=== PATIENT | male | born 1965 | race Caucasian/White ===

== ENCOUNTER 2020-08-05 12:50 | Outpatient (REF) | payer MEDICAID, SELFPAY | END 2020-08-05 12:51 | disposition home or self-care (01) | LOC: HO.HAP 12:50 | PROVIDERS: PCP Internal Medicine Geriatric Medicine; Referring Provider Internal Medicine Geriatric Medicine; Visit Provider Internal Medicine Geriatric Medicine | DX: Z46.1 Encounter for fitting and adjustment of hearing aid (principal) | CPT/HCPCS: V5266 ==

== ENCOUNTER 2020-11-01 11:37 | Outpatient (REF) | payer MEDICAID, SELFPAY | END 2020-11-01 11:38 | disposition home or self-care (01) | LOC: HO.HAP 11:37 | PROVIDERS: Visit Provider Internal Medicine Geriatric Medicine | DX: Z46.1 Encounter for fitting and adjustment of hearing aid (principal); H90.3 Sensorineural hearing loss, bilateral | CPT/HCPCS: 99499 ==

== ENCOUNTER 2020-11-20 11:03 | Outpatient (REF) | payer MEDICAID, SELFPAY ==
--- NOTE | 2020-11-21 08:30 | MHC.AU.P13 ---
Adult Audiological Evaluation Date of Visit: 11/20/20 Investment Fund Manager Used: Malian- In Person Reason for Appointment: Audiologic re-evaluation due to increased difficulties understanding speech. Marge current hearing aids are not functioning well. The volume controls of both aids do not work and there has been significant corrosion around the contacts. Previous Hearing Test Results: 06/27/2019 [facility] Left Ear - Severe sensorineural hearing loss through all frequencies with 56% speech understanding. Right Ear - Profound sensorineural hearing loss with no speech discrimination ability. Ear History: History of right tympanic membrane perforation as a child. Bothersome Tinnitus/Ringing/Noises in Ears: Both Ears Medical History: Medical History: High Blood Pressure Medication List: Not available for review Hearing Instrument History- Right Ear: Information Coder: Phonak Model: CROS II-13 Serial Number: [id number] Battery Size: Rechargeable Repair Warranty: 2016 Dispensed By: [facility] Date of Fittin06/27/2015 Hearing Instrument History- Left Ear: Information Coder: Phonak Model: Bolero V 50-P Serial Number: [id number] Battery Size: 13 Warranty: 2016 Dispensed By: [facility] Date of Fittin06/27/2015 Otoscopy: Right Ear: Unremarkable Left Ear: Unremarkable Tympanometry: Tympanometry performed due to: History of middle ear dysfunction Right Ear: Reduced Middle Ear Compliance (Type As) Left Ear: Normal Middle Ear System (Type A) Hearing Evaluation: Transducer(s) Used: Insert Earphones Bone Conduction Method: Conventional Audiometry Stimuli Used: Pure Tones Right Ear: Description of Hearing: Profound sensorineural hearing loss Left Ear: Description of Hearing: Severe to profound sensorineural hearing loss Speech Recognition Threshold (SRT): Method Used: Monitored Live Voice Stimuli Used: Spondee Words Right Ear: Could Not Test Left Ear: 85 dB HL Word Discrimination: Method: Monitored Live Voice Word Lists Used: Right Ear: Could Not Test Left Ear: 56% at 100 dB HL Comparison: Compared to the most recent evaluation: Thresholds have decreased in the left ear. Thresholds have improved in the right ear. Speech understanding is stable for the left ear Recommendations: Audiological re-evaluation in one year. Trial with amplification is recommended. Medical clearance from a physician is required before fitting. Hearing Aid Fitting will be scheduled when all materials arrive. See Hearing Aid Evaluation report for more information. When medical clearance is received from Dr. Eldridge, the new CROS hearing aid system and earmolds will be ordered and a Hearing Aid Fitting appointment will be scheduled Diagnosis: Primary Diagnosis: H90.3 Bilateral Sensorineural Hearing Loss Secondary Diagnosis: H93.13 Tinnitus, Bilateral Services Performed: Comprehensive Audiological Evaluation (CPT 35866) Tympanometry (CPT 18938) Signature: Provider: Isadora Polanco, MARCOS-A
--- NOTE | 2020-11-21 09:01 | MHC.AU.HAS ---
Hearing Aid Evaluation Date of Visit: 11/20/20 Publisher Assistant Used: Welsh- In Person Historical Information: Description of Hearing: Asymmetric severe to profound sensorineural hearing loss , right ear greater than left Current personal amplification information, if applicable: Left Phonak Bolero V 50-P and Right CROS II 13 Summary: The volume control for both devices are not working, even after trying to clean. Patient is eligible for new hearing aids, as given the volume controls do not work and there has been significant corrosion around the contacts, advise new rechargeable CROS hearing aid system as the rechargeable model is more water resistant. Hearing Aid Prescription: Based on the individual?s shared listening needs, communication environments, dexterity, desire for connectivity, and personal preferences, the following prescription for amplification has been made: Right ear: Diesel Retrofit Designer: PowWowHR Model: CROS-R Battery Size: Rechargeable Color: Savage Admissions Dean: #2 CROS Wire Type of Dome: Open Left ear: Diesel Retrofit Designer: PowWowHR Model: Eyad 1600-R Battery Size: 13 Color: Savage Admissions Dean: #2 Ultra Power Type of Mold: PowWowHR Ultra Power Skeleton Plan of Care: Patient wishes to purchase hearing aids as prescribed Action Taken/Action Needed: Earmold Impressions Taken Medical Clearance to be requested from PCP/ENT Hearing Fitting to be scheduled when materials arrive Comments: Primary Diagnosis: H90.3 Bilateral Sensorineural Hearing Loss Secondary Diagnosis: H93.13 Tinnitus, Bilateral Signature: Provider: Isadora Polanco, CCC-A
--- NOTE | 2020-11-21 09:03 | MHC.AU.MED ---
Medical Clearance for Hearing Instrumentation Date: 11/21/20 Patient Name: Andre Stephens Date of : 1965 Primary Care Provider: Referring Provider: Mariaa Foreman NP We have seen your patient on 11/21/20 and have determined that they are a candidate for amplification (See accompanying report). Specifically, they would benefit from: Hearing aid use in both ears CROS System There is a statute that addresses Medical Evaluation Requirements prior to fitting a patient with a hearing aid. According to [place] statute 265 CMR:6.03(1), (a) General. Except as provided in 265 CMR 6.03(1)(b), a digital solutions architect shall not sell a hearing aid unless the prospective user has presented to the digital solutions architect a written statement signed by a licensed physician that states that the patient's hearing loss has been medically evaluated and the patient may be considered a candidate for a hearing aid. The medical evaluation must have taken place within the preceding six months. Please note: Due to the [place] Statute referenced above, we cannot accept a signature other than that of a licensed physician. METAL RECLAMATION KETTLE TENDER and PA signatures cannot be accepted. I am in agreement with the above recommendation. There is no medical contraindication for hearing instrumentation. Physician Signature Date Physician Name (Printed)
== END 2020-11-20 11:04 | disposition home or self-care (01) ==
LOC: HO.SH 11:03
PROVIDERS: Visit Provider Registered Nurse Community Health
DX: Z46.1 Encounter for fitting and adjustment of hearing aid (principal); H90.3 Sensorineural hearing loss, bilateral; H93.13 Tinnitus, bilateral
CPT/HCPCS: 92557; 92567; 92591; V5275

== ENCOUNTER 2020-12-30 12:13 | Outpatient (REF) | payer MEDICAID, SELFPAY | END 2020-12-30 12:14 | disposition home or self-care (01) | LOC: HO.HAP 12:13 | PROVIDERS: Visit Provider Internal Medicine Geriatric Medicine | DX: Z46.1 Encounter for fitting and adjustment of hearing aid (principal); H90.3 Sensorineural hearing loss, bilateral | CPT/HCPCS: 92595; V5011; V5020; V5213; V5240; V5264 ==

== ENCOUNTER 2021-01-14 12:26 | Outpatient (REF) | payer MEDICAID, SELFPAY | END 2021-01-14 12:27 | disposition home or self-care (01) | LOC: HO.HAP 12:26 | PROVIDERS: Visit Provider Internal Medicine Geriatric Medicine | DX: Z13.89 Encounter for screening for other disorder (principal) ==

== ENCOUNTER 2021-05-21 07:05 | Outpatient (REF) | payer MEDICAID, SELFPAY ==
--- NOTE | ~2021-05-21 | XR_ITS ---
EXAMINATION: X-RAY STANDING BILATERAL KNEES X-RAY RIGHT KNEE 2 VIEWS CLINICAL INFORMATION: Pain in the right knee. COMPARISON: X-ray of the right knee dated from 06/21/2013. TECHNIQUE: AP standing view of both knees Patella sunrise and lateral view of the right knee FINDINGS: No evidence of acute fractures or malalignment. There is mild joint space narrowing in the medial compartment of the left knee and moderate joint space narrowing in the medial and patellofemoral of the right knee. There are associated subcortical sclerosis and spurring. No erosions or chondrocalcinosis. There are well ossified bodies adjacent to the tibial tuberosity, likely from prior injury. There is a small joint effusion in the right knee. XR/XR knee RT 2V IMPRESSION: No acute fractures or malalignment. Moderate degenerative osteoarthritis in the medial and patellofemoral compartment of right knee. Small joint effusion. Mild degenerative changes in the medial compartment of the left knee.
--- NOTE | ~2021-05-21 | XR_ITS ---
EXAMINATION: X-RAY STANDING BILATERAL KNEES X-RAY RIGHT KNEE 2 VIEWS CLINICAL INFORMATION: Pain in the right knee. COMPARISON: X-ray of the right knee dated from 06/21/2013. TECHNIQUE: AP standing view of both knees Patella sunrise and lateral view of the right knee FINDINGS: No evidence of acute fractures or malalignment. There is mild joint space narrowing in the medial compartment of the left knee and moderate joint space narrowing in the medial and patellofemoral of the right knee. There are associated subcortical sclerosis and spurring. No erosions or chondrocalcinosis. There are well ossified bodies adjacent to the tibial tuberosity, likely from prior injury. There is a small joint effusion in the right knee. XR/XR knee standing BI IMPRESSION: No acute fractures or malalignment. Moderate degenerative osteoarthritis in the medial and patellofemoral compartment of right knee. Small joint effusion. Mild degenerative changes in the medial compartment of the left knee.
== END 2021-05-21 07:06 | disposition home or self-care (01) ==
LOC: HO.HOSX 07:05
PROVIDERS: Visit Provider Physician Assistant
DX: M17.11 Unilateral primary osteoarthritis, right knee (principal); M25.562 Pain in left knee
CPT/HCPCS: 73560; 73565; 99202

== ENCOUNTER 2021-12-31 15:05 | Outpatient (REF) | payer MEDICAID, SELFPAY | END 2021-12-31 15:06 | disposition home or self-care (01) | LOC: HO.HAP 15:05 | PROVIDERS: Visit Provider Emergency Medicine | DX: Z46.1 Encounter for fitting and adjustment of hearing aid (principal); H90.3 Sensorineural hearing loss, bilateral | CPT/HCPCS: V5266 ==

== ENCOUNTER 2023-06-15 13:35 | Outpatient (REF) | payer MEDICAID, SELFPAY ==
--- NOTE | 2023-06-16 13:05 | MHC.AU.HA3 ---
Hearing Instrument Follow-Up- Binaural Date of Visit: 06/15/23 Right Ear: Logan, Model, Color, Serial Number: Jase Castano CROS CIERRA-R SN: [id number] Color: Savage Composition Board Press Operator Repair Warranty: 03/17/2024 Composition Board Press Operator Loss and Damage Warranty: 03/17/2024 [facility] Service Plan: 12/30/2021 Battery Size: Rechargeable Outside Sales Advertising Executive/Slim Tube: #2 CROS Wire Earmold/Dome/CShell/SlimTip:[place] Skeleton Type of Wax Guard: HearClear Dispensed By: [facility] Date of Fittin12/30/2020 Left Ear: Logan, Model, Color, Serial Number: Jase Castano 1600 CIERRA-R SN: [id number] Color: Savage Composition Board Press Operator Repair Warranty: 03/17/2024 Composition Board Press Operator Loss and Damage Warranty: 03/17/2024 [facility] Service Plan: 12/30/2021 Battery Size: 13 Outside Sales Advertising Executive/Slim Tube: #2 Ultra Power Earmold/Dome/CShell/SlimTip: Jase Ultra Power Skeleton Type of Wax Guard: HearClear Dispensed By: [facility] Date of Fittin12/30/2020 Follow-Up Summary: Andre returned for updated hearing test (see separate report). Briefly discussed CI. In the meantime, Andre will continue with hearing aid use. However, he reported that his hearing aids have not been holding a charge. He is unsure if it is related to the hearing aids themselves or the room service attendant. Both hearing aids during appointment. Tried to charge during testing - Able to briefly connect to [employer] software. Firmware update available; however, hearing aids did not have enough battery life to complete update. Andre and his son decided to leave his hearing aids and room service attendant, cord, and wall plug here to charge overnight and be reassessed tomorrow. 06/16/2023: Even after charging overnight, LED light on room service attendant is still blinking. Hearing aids were connected to [employer] and only at 60% battery power. Able to update firmware. Will send hearing aids, room service attendant, cord, and wall plug to [facility] for in-warranty repair. Recommendations: Patient will be contacted when materials have arrived. Diagnosis Code(s): Primary Diagnosis: H90.3 Bilateral Sensorineural Hearing Loss Signature: Provider: Graham Hua, [facility]
== END 2023-06-15 13:36 | disposition home or self-care (01) ==
LOC: HO.SH 13:35
PROVIDERS: Visit Provider Registered Nurse
DX: H91.91 Unspecified hearing loss, right ear (principal)
CPT/HCPCS: 92557; 92593; 99499

== ENCOUNTER 2023-07-01 13:47 | Outpatient (REF) | payer MEDICAID, SELFPAY | END 2023-07-01 13:48 | disposition home or self-care (01) | LOC: HO.HAP 13:47 | PROVIDERS: Visit Provider Registered Nurse Community Health | DX: Z13.89 Encounter for screening for other disorder (principal) ==

== ENCOUNTER 2023-07-01 14:02 | Outpatient (REF) | payer SELFPAY | END 2023-07-01 14:03 | disposition home or self-care (01) | LOC: HO.HAP 14:02 | PROVIDERS: Visit Provider Registered Nurse Community Health | DX: Z46.1 Encounter for fitting and adjustment of hearing aid (principal); H90.3 Sensorineural hearing loss, bilateral | CPT/HCPCS: V5267 ==

== ENCOUNTER 2023-10-11 10:31 | Outpatient (REF) | payer MEDICAID, SELFPAY ==
[2023-10-11 12:45] LABS: Uric Acid Urine Random 37.2 mg/dL
== END 2023-10-11 10:32 | disposition home or self-care (01) ==
LOC: HO.HHCL 10:31
PROVIDERS: Visit Provider Registered Nurse
DX: M10.9 Gout, unspecified (principal)
CPT/HCPCS: 84560

== ENCOUNTER 2024-06-01 17:21 | Outpatient (REF) | payer MEDICAID, SELFPAY | END 2024-06-01 17:22 | disposition home or self-care (01) | LOC: HO.HHCLNP 17:21 | PROVIDERS: Visit Provider Family Medicine | DX: R30.0 Dysuria (principal) | CPT/HCPCS: 87086 ==

== ENCOUNTER 2024-07-03 14:05 | Outpatient (REF) | payer MEDICAID, SELFPAY ==
[2024-07-03 16:10] LABS: MANUAL DIFF FLAG NO
[2024-07-03 16:12] LABS: Appearance Urine Clear; Color Urine Yellow; Glucose Urine UA >=1000 mg/dL (Negative); Leukocyte Esterase Urine Negative (Negative); Nitrite Urine Negative (Negative); PH 5.5 (5.0-9.0); Specific Gravity - Urine >= 1.030 (1.005-1.025); UMIC TRIGGER UACC YES; Urine Blood Trace (Negative); Urine Ketones Negative (Negative); Urine Protein Trace mg/dL (Neg-Trace)
[2024-07-03 16:17] LABS: Bacteria Urine None Seen (None Seen); Basophils Absolute Auto 0.1 X10*3/uL (0.0-0.2); Basophils Percent Auto 0.8 % (0-2); Eosinophils Absolute Auto 0.2 X10*3/uL (0.0-0.4); Eosinophils Percent Auto 1.9 % (0-4); Hematocrit 45.6 % (42.0-52.0); Hemoglobin 15.2 g/dl (14.0-18.0); Hyaline Casts Urine 0-2 /LPF (0-2); Imm Gran Abs Auto 0.02 X10*3/uL (0.00-0.03); Imm Gran Pct Auto 0.3 % (0.0-0.4); Lymphocytes Absolute Auto 3.2 X10*3/uL (1.2-4.9); Lymphocytes Percent Auto 40.4 % (20-40); Mean Corpuscular HGB Conc 33.3 g/dl (31.0-36.0); Mean Corpuscular Hemoglobin 33.6 pg (27.0-33.0); Mean Corpuscular Volume 100.9 fL (80.0-98.0); Mean Platelet Volume 12.4 fL (9.4-12.4); Monocytes Percent Auto 12.2 % (2-11); Neutrophils Absolute Auto 3.5 x10*3/uL (2.0-8.3); Neutrophils Percent Auto 44.4 % (45-73); Platelet Count 206 X10*3/uL (160-400); RBC Urine 0-2 /HPF (0-2); Red Blood Count 4.52 X10*6/uL (4.60-5.80); Red Cell Distribution Width 13.2 % (11.0-16.0); Squamous Epithelial Cell Urine 0-2 /HPF (0-2); WBC Urine 0-5 /HPF (0-5); White Blood Count 7.9 X10*3/uL (4.8-10.8)
== END 2024-07-03 14:06 | disposition home or self-care (01) ==
LOC: HO.HHCL 14:05
PROVIDERS: Family Medicine; Visit Provider Internal Medicine Geriatric Medicine
DX: D75.1 Secondary polycythemia (principal); R31.29 Other microscopic hematuria
CPT/HCPCS: 36415; 81001; 85025

== ENCOUNTER 2024-12-29 11:00 | Outpatient (REF) | payer SELFPAY ==
--- OUTSIDE RECORDS SUMMARY | 2025-01-01 12:33 | XMS_ITS | Encounter Summary ---
Author Organization [employer] Address [address] 7t [place] [address] Care Team Providers Care Commissioner Conservation Of Resources Name Role Phone Bing Gamboa SALES ATTENDANT BUILDING MATERIALS Primary Care Provider [phone] Kristen Lazaro NP Primary Care Provider [phone] Name, Guru DIAS Primary Care Provider [phone] Encounter Details Date Type Department Care Team (Late st Contact Info) Description 07/12/2023 Abstract [facility] MEDICINE 230 [place] [address] Jenni Holman Social History Tobacco Use Types [...] documented as of this encounter Care Teams Commissioner Conservation Of Resources Relationship Specialty Start Date End Date Bing Gamboa FNP 230 [place] [address] PCP - General Family Medicine 05/20/23 09/23/23 Kristen Lazaro NP 230 [place] [address] PCP - General Family Medicine 09/24/23 02/28/24 Guru Eldridge MD 230 [place] [address] PCP - General Internal Medicine 02/29/24 documented as of this encounter
--- OUTSIDE RECORDS SUMMARY | 2025-01-01 12:33 | XMS_ITS | Encounter Summary ---
Author Organization [employer] [facility] Address [address] 7t [place] [address] Care Team Providers Care Charter Coach Driver Name Role Phone Tray Brady Primary Care Provider Unavail Bing Erickson Primary Care Provider [phone] Kristen Lazaro NP Primary Care Provider [phone] Name, Guru DIAS Primary Care Provider [phone] Reason for Visit * Reason Comments Med Refill Encounter Details Date Type Department Care Team (Late st Contact Info) Description 10/27/2022 Refill [facility] MEDICINE 230 [place], [place] [phone] Dorota Carey MD [address] [place] [address] Type 2 diabetes mellitus with other specified complication, unspecified whether buttermaker insulin use (CMS/HCC) (Primary Dx) Social History [...] mellitus with other specified complication, unspecified whether senior living insulin use (CMS/HCC)- Primary documented in this encounter Care Teams Charter Coach Driver Relationship Specialty Start Date End Date Tray Brady AGNP PCP - General Family Medicine 10/08/22 05/19/23 Bing Gamboa FNP [address] [place] [address] PCP - General Family Medicine 05/20/23 09/23/23 Kristen Lazaro NP [address] [place] [address] PCP - General Family Medicine 09/24/23 02/28/24 Guru Eldridge MD [address] [place] [address] PCP - General Internal Medicine 02/29/24 documented as of this encounter
--- OUTSIDE RECORDS SUMMARY | 2025-01-01 12:33 | XMS_ITS | Encounter Summary ---
Author Organization [employer] Address [address] 7[address] [place] [address] Care Team Providers Care Recreation Director Name Role Phone Bing GamboaP Primary Care Provider [phone] Kristen Lazaro NP Primary Care Provider [phone] Chente, Guru DIAS Primary Care Provider [phone] Reason for Visit * Reason Comments Med Refill Encounter Details Date Type Department Care Team (Late st Contact Info) Description 08/12/2023 Refill [facility] MEDICINE 230 [place] [address] Tray Brady AGNP Social History Tobacco Use [...] documented as of this encounter Care Teams Recreation Director Relationship Specialty Start Date End Date Bing Gamboa FNP 230 [place] [address] PCP - General Family Medicine 05/20/23 09/23/23 Kristen Lazaro NP [address] [place] [address] PCP - General Family Medicine 09/24/23 02/28/24 Guru Eldridge MD 230 [place] [address] PCP - General Internal Medicine 02/29/24 documented as of this encounter
--- OUTSIDE RECORDS SUMMARY | 2025-01-01 12:33 | XMS_ITS | Encounter Summary ---
Author Organization [employer] Address [address] 7t [place] [address] Care Team Providers Care Cot Assembler Name Role Phone Name, Guru DIAS Primary Care Provider [phone] Reason for Visit * Reason Comments Med Refill Encounter Details Date Type Department Care Team ([facility] st Contact Info) Description 09/27/2024 Refill [facility] MED & PEDS [address] [place], [place] [phone] Name, MD Guru [address] [place] [address] Social History Tobacco Use Types Packs/Day Years [...] documented as of this encounter Care Teams Cot Assembler Relationship Specialty Start Date End Date Name, MD Guru [address] [place] [address] PCP - General Internal Medicine 02/29/24 documented as of this encounter
--- OUTSIDE RECORDS SUMMARY | 2025-01-01 12:33 | XMS_ITS | Clinical Summary ---
Author Organization [employer] [facility] Address [address] [facility] [address] 7t [place] [address] Care Team Providers Care Configuration Analyst Name Role Phone Name, Guru DIAS Primary Care Provider [phone] Allergies Active Allergy Reactions Criticality Noted Date [...] mellitus with other specified complication, unspecified whether long term care phlebotomist insulin use (CMS/HCC) USE DIRECTED 100 each 5 01/28/20 24 Active Farxiga 5 MG Take [...] new referral. Dental home: Has dentist in [place] Type 2 diabetes mellitus 08/10/2022 Assessment & [...] Type Department Care Team Description 12/14/2024 Telephone [facility] MEDICINE [address] [place] [address] Aj Grewal [place] february recalls 12/14/2024 Refill [facility] [address] [place], [place] [phone] Name, MD Guru Type 2 diabetes mellitus with stage 2 chronic kidney disease, without long-term current use of insulin ([facility]/HCC) ([facility]); Atrial fibrillation, unspecified type ([facility]/HCC) 12/12/2024 Refill [facility] MEDICINE [address] [place], [place] [phone] Tania Jorgensen MD Atrial fibrillation, unspecified type (CMS/HCC) 12/12/2024 Refill [facility] MED & PEDS [address] [place], [place] [phone] Guru Eldridge MD Atrial fibrillation, unspecified type (CMS/HCC); Type 2 diabetes mellitus with stage 2 chronic kidney disease, without long-term current use of insulin (CMS/[facility]) (CMS/HCC) 11/10/2024 Population Health Risk Score [facility] () Department [address] [place] [id number] Provider, Population Health Generic 11/06/2024 Refill [facility] MED & PEDS [address] [place] [address] Name, MD Guru from Last 3 Months [...] Media Lot # [id number] Lot# Expiration Date ,104 Blood 03/03/2024 10:2 0 AM EDT us Guru Eldridge MD POINT OF CARE TEST ENTER/EDIT OR DERABLES Final Result * Hepatitis C Antibody with Reflex to HCV, RNA, Quantitative, Real-Time PCR (01/13/2023 10:41 AM EDT) Hepatitis C Antibody NON-REACT BON NON-REACT BON [facility] Index 0.06 <1.00 [facility] Comment: HCV antibody was non-reactive. There is no laboratory evidence of HCV infection. In most cases, no further action is required. However, if recent HCV exposure is suspected, a test for HCV RNA (test code 20975) is suggested. For additional information please refer to http://education.Advanced Electron Beams/faq/OLA71z4 (This link is being provided for informational/ educational purposes only.) Blood Venous blood specimen / Unknown 01/13/2023 10:41 AM EDT 01/13/2023 10:42 AM EDT Narrative [facility] - 01/13/2023 8:45 PM EDT FASTING:UNKNOWN FASTING: UNKNOWN Tray Brady [facility] LAB BLOOD ORDERABLES Final Res ult [facility] [address], [place] [address] [employer] [place] [employer] [address] [place] [address] * (ABNORMAL) Lipid Panel, Standard (01/13/2023 10:41 AM EDT) [facility] Cholesterol, Total 184 <200 mg/dL [employer] [place] [facility] HDL Cholesterol 52 > OR = 40 mg/dL [employer] [place] [facility] Triglycerides 172(H) <150 mg/dL [employer] [place] [facility] LDL Cholesterol 103(H) mg/dL (calc) [employer] [place] [facility] Comment: Reference range: <100 Desirable range <100 mg/dL for primary prevention; ?? <70 mg/dL for patients with CHD or diabetic patients with > or = 2 CHD risk factors. LDL-C is now calculated using the Tashi-Iesha calculation, which is a validated novel method providing better accuracy than the Friedewald equation in the estimation of LDL-C. Tashi HALEY et al. DEBBY. 2013;310(19): 9914-7863 (http://education.ULURU.Ambassador/faq/TIO433) Chol/HDLC Ratio 3.5 <5.0 (calc) [employer] [place] [facility] Non-HDL Cholesterol 132(H) <130 mg/dL (calc) [employer] [place] [facility] Comment: For patients with diabetes plus 1 major ASCVD risk factor, treating to a non-HDL-C goal of <100 mg/dL (LDL-C of <70 mg/dL) is considered a therapeutic option. Blood Venous blood specimen / Unknown 01/13/2023 10:41 AM EDT 01/13/2023 10:42 AM EDT Narrative [facility] - 01/13/2023 8:45 PM EDT FASTING:UNKNOWN FASTING: UNKNOWN Tray Brady AGNP LAB BLOOD ORDERABLES Final Res ult [facility] [address] [facility], [place] [address] [facility] [address] [place] [address] * (ABNORMAL) HIV 1/2 ANTIGEN/ANTIBODY,FOURTH GENERATION W/RFL (06/19/2022 11:21 AM EDT) Pathologist [facility] HIV-1/2 ANTIGEN AND ANTIBODIES, 4TH GENERATION [...] 06/19/2022 11:2 1 AM EDT Mariaa Foreman DIRECTOR DIGITAL LAB BLOOD ORDERABLES Final Res ult [facility] * (ABNORMAL) Colonoscopy (06/28/2017) Colonoscopy Abnormal( A) Normal Comment:2 small polyps, Mode rate Diverticulosis. Repeat 5 years 06/28/2017 Historical Provider HEALTH MAINTENANCE Final Result from Last 3 Months or Most Recently Relevant to Health Maintenance Insurance [employer] Care Teams Configuration Analyst Relationship Specialty Start Date End Date Name, MD Guru 230 [place] [address] PCP - General Internal Medicine 02/29/24
--- OUTSIDE RECORDS SUMMARY | 2025-01-01 12:33 | XMS_ITS | Encounter Summary ---
Author Organization [employer] Address [address] 7t [place] [address] Care Team Providers Care Hand Iii Cutter Name Role Phone Tray Brady Primary Care Provider Unavail Bing EricksonP Primary Care Provider [phone] Kristen Lazaro NP Primary Care Provider [phone] Name, Guru DIAS Primary Care Provider [phone] Reason for Visit * Reason Onset Date Comments Referral 01/18/2023 Encounter Details Date Type Department Care Team (Late st Contact Info) Description 01/18/2023 Telephone [facility] MEDICINE [address] [place], [place] [phone] Tray Brady AGNP Referral Social History Tobacco [...] [facility]. Please contact pt at [phone] documented in this encounter Plan of Treatment Not on file documented as of this encounter Visit Diagnoses Not on filedocumented in this encounter Additional Health Concerns Assessment Noted Time PHQ-9 Depression Total Score: 5 01/02/20 9:27 AM EDT documented as of this encounter Care Teams Hand Iii Cutter Relationship Specialty Start Date End Date Tray Brady AGNP PCP - General Family Medicine 10/08/22 05/19/23 Bing Gamboa FNP 230 [place] [address] PCP - General Family Medicine 05/20/23 09/23/23 Kristen Lazaro NP [address] [place] [address] PCP - General Family Medicine 09/24/23 02/28/24 Guru Eldridge MD [address] [place] [address] PCP - General Internal Medicine 02/29/24 documented as of this encounter"
--- OUTSIDE RECORDS SUMMARY | 2025-01-01 12:33 | XMS_ITS | Encounter Summary ---
Author Organization [employer] Address [address] 7[address] [place] [address] Care Team Providers Care Water Aerobics Instructor Name Role Phone Name, Guru DIAS Primary Care Provider [phone] Reason for Visit * Reason Comments Med Refill Encounter Details Date Type Department Care Team ([facility] st Contact Info) Description 12/14/2024 Refill [facility] [address] [place] [address] Name, MD Guru [address] [place], [place] [phone] Type 2 diabetes mellitus with stage 2 chronic kidney disease, without long-term current use of insulin (CMS/HCC) ([facility]/HCC); Atrial fibrillation, unspecified type (CMS/HCC) Social History [...] documented as of this encounter Care Teams Water Aerobics Instructor Relationship Specialty Start Date End Date Name, MD Guru [address] [place] [address] PCP - General Internal Medicine 02/29/24 documented as of this encounter
--- OUTSIDE RECORDS SUMMARY | 2025-01-01 12:33 | XMS_ITS | Clinical Summary ---
Author Organization [facility] Address [address] [facility] [place] [address] Phone Care Team Providers Care Preschool Associate Teacher Name Role Phone Mariaa Foreman Primary Care [...] new referral. Dental home: Has dentist in [place] Type 2 diabetes mellitus 08/10/2022 Overview (01/18/2023): [...] Office Visit [facility] [address] [facility] [address] [place] [address] Yesica Menezes ARNP [address] [place] [address] Health Maintenance Due Date Last [...] PM EDT) Hemoglobin A1C 6.2(H) (4.0-5.6) % [facility] Comment: MONITORING: In known diabetic patients, hemoglobin A1c targets should be discussed with health care provider. DIAGNOSTIC USE: ??The [place] Diabetes Association (ADA) and the World Health [...] Supplement 1 Testing performed or reported by [employer], a Service of [facility], [address] [place] [address] Jasper Vines MD, Volunteer Specialist [facility]# [id number] 05/24/2023 4:15 PM EDT 05/24/2023 4:25 PM EDT us Jennifer Luu MD LAB BLOOD ORDERABLES Final Resu lt [facility] from Last 3 Months or Most Recently Relevant to Health Maintenance [place] [address] Medicaid [place] Care Teams Preschool Associate Teacher Relationship Specialty Start Date End Date Mariaa Foreman [address] [place] [address] PCP - General Family Medicine 02/25/21
--- OUTSIDE RECORDS SUMMARY | 2025-01-01 12:33 | XMS_ITS | Encounter Summary ---
Author Organization [employer] Address [address] 7[address] [place] [address] Care Team Providers Care Director Learning Services Name Role Phone Name, Guru DIAS Primary Care Provider [phone] Reason for Visit * Reason Comments Med Refill Encounter Details Date Type Department Care Team ([facility] st Contact Info) Description 12/12/2024 Refill [facility] [address] [place], [place] [phone] Name, MD Guru [address] [place] [address] Atrial fibrillation, unspecified type ([facility]); Type 2 diabetes mellitus with stage 2 chronic kidney disease, without long-term current use of insulin ([facility]) ([facility]) Social History Tobacco Use Types Packs/Day Years [...] Visit Diagnoses Diagnosis Atrial fibrillation, unspecified type ([facility]) Type 2 diabetes mellitus with stage 2 chronic kidney disease, without long-term current use of insulin ([facility]) ([facility]) documented in this encounter Additional Health Concerns Assessment Noted Time PHQ-9 Depression Total Score: 5 01/02/20 23 9:27 AM EDT documented as of this encounter Care Teams Director Learning Services Relationship Specialty Start Date End Date Name, MD Guru [address] [place] [address] PCP - General Internal Medicine 02/29/24 documented as of this encounter
== END 2024-12-29 11:01 | disposition home or self-care (01) ==
LOC: HO.HAP 11:00
PROVIDERS: Visit Provider Registered Nurse Community Health
DX: Z46.1 Encounter for fitting and adjustment of hearing aid (principal)
CPT/HCPCS: V5267

== ENCOUNTER 2024-12-29 13:08 | Outpatient (REF) | payer MEDICAID, SELFPAY ==
--- OUTSIDE RECORDS SUMMARY | 2024-12-29 13:29 | XMS_ITS | Encounter Summary ---
Author Organization [facility] Address [address] [place] [address] Care Team Providers Care Flaker Tender Name Role Phone Tray Brady Primary Care Provider Unavail Bing EricksonP Primary Care Provider [phone] Kristen Lazaro NP Primary Care Provider [phone] Name, Guru DIAS Primary Care Provider [phone] Reason for Visit * Reason Onset Date Comments Referral 01/18/2023 Encounter Details Date Type Department Care Team (Late st Contact Info) Description 01/18/2023 Telephone [facility] [address] [place], [place] [phone] Tray Brady AGNP Referral Social History Tobacco Use Types Packs/Day Years Used Date Smoking Tobacco: Former Cigarettes Passive Smoke Exposure: Never Smokeless Tobacco: Never Alcohol Use Standard Drinks/Week Comments Not Currently 0 (1 standard drink = 0.6 oz pur e alcohol) Depression Answer Date Recorded Patient Health Questionnaire-9 Score 5 01/01/2023 Depression Answer Date Recorded Patient Health Questionnaire-2 Score 1 01/01/2023 Sex and Gender Information Value Date Recorded Sex Assigned at Male 06/29/2022 10:17 AM EDT Legal Sex Male 10:16 AM EDT Gender Identity Choose not to disclose 10:17 AM EDT Sexual Orientation Choose not to disclose 2021 10:17 AM EDT COVID-19 Exposure Response Date Recorded In the last 10 days, have yo u been in contact with someone who was confirmed or suspected to have Coronavirus/COVID-19? No / Unsure 01/15/2023 9:24 AM EDT documented as of this encounter Miscellaneous Notes * Telephone Encounter - Isabel Biggs RN - 01/18/2023 4:12 PM EDT TC X1 to pt regarding message below. Unsure if pt requesting eye care referral for routine visit orfor urgent concern or if pt is aware of long wait times. LVM to return call to nurses. * Telephone Encounter - Grayson Johnson - 01/18/2023 3:12 PM EDT Tc from pt requesting a [facility]. Please contact pt at [phone] documented in this encounter Plan of Treatment Not on file documented as of this encounter Visit Diagnoses Not on filedocumented in this encounter Additional Health Concerns Assessment Noted Time PHQ-9 Depression Total Score: 5 01/02/20 9:27 AM EDT documented as of this encounter Care Teams Flaker Tender Relationship Specialty Start Date End Date Tray Brady AGNP PCP - General Family Medicine 10/08/22 05/19/23 Bing Gamboa FNP [address] [place] [address] PCP - General Family Medicine 05/20/23 09/23/23 Kristen Lazaro NP [address] [place] [id number] PCP - General Family Medicine 09/24/23 02/28/24 Guru Eldridge MD [address] [place] [id number] PCP - General Internal Medicine 02/29/24 documented as of this encounter
--- OUTSIDE RECORDS SUMMARY | 2024-12-29 13:29 | XMS_ITS | Encounter Summary ---
Author Organization [employer] Address [address] [place] [address] Care Team Providers Care Fluorescent Lighting Model Maker Name Role Phone Name, Guru DIAS Primary Care Provider [phone] Reason for Visit * Reason Comments Med Refill Encounter Details Date Type Department Care Team ([facility] st Contact Info) Description 09/27/2024 Refill [facility] [address] [place], [place] [phone] Name, MD Guru [address] [place] [address] Social History Tobacco Use Types Packs/Day Years Used Date Smoking Tobacco: Some Days Cigarettes Passive Smoke Exposure: Never Smokeless Tobacco: Never Alcohol Use Standard Drinks/Week Comments Not Currently 0 (1 standard drink = 0.6 oz pur e alcohol) Depression Answer Date Recorded Patient Health Questionnaire-9 Score 5 01/01/2023 Housing Stability Answer Date Recorded What is your housing situation today? I have don do 03/03/[address] you li ve. Do you have problems with any of the following? None of the above 03/03/2024 Food Insecurity Answer Date Recorded Within the past 12 months, y ou worried that your food would run out before you got money to buy more: Never True 03/03/2024 Within the past 12 months,th e food you bought just didn't last and you didn't have enough money to get more: Never True 12/2023 Transportation Answer Date Recorded In the past 12 months, has l ack of transportation kept you from medical appts, meetings, work or from getting things needed for daily living? No 03/03/2024 Utilities Answer Date Recorded In the past 12 months, has t he electric, gas, oil or water company threatened to shut off services in your home? No 03/03/2024 Depression Answer Date Recorded Patient Health Questionnaire-2 Score 1 01/01/2023 Internet Access Answer Date Recorded Internet Access Q1 Yes 05/01/2024 Internet Access Q2 I do not want or need it 09/2023 Sex and Gender Information Value Date Recorded Sex Assigned at Male 06/29/2022 10:17 AM EDT Legal Sex Male 10:16 AM EDT Gender Identity Choose not to disclose 10:17 AM EDT Sexual Orientation Choose not to disclose 2021 10:17 AM EDT documented as of this encounter Plan of Treatment Not on file documented as of this encounter Visit Diagnoses Not on filedocumented in this encounter Additional Health Concerns Assessment Noted Time PHQ-9 Depression Total Score: 5 01/02/20 23 9:27 AM EDT documented as of this encounter Care Teams Fluorescent Lighting Model Maker Relationship Specialty Start Date End Date Name, MD Guru [address] [place] [address] PCP - General Internal Medicine 02/29/24 documented as of this encounter
--- OUTSIDE RECORDS SUMMARY | 2024-12-29 13:29 | XMS_ITS | Clinical Summary ---
Author Organization [facility] Address [address] [place] [address] Care Team Providers Care Director Of Enterprise Applications Name Role Phone Name, Guru DIAS Primary Care Provider [phone] Allergies Active Allergy Reactions Criticality Noted Date Comments Aspirin 09/28/2014 Lisinopril Swelling 01/15/2023 Tongue swelling. Penicillin V Other reaction(s): unspecified Penicillins 09/28/2014 Medications Blood Pressure kit Use on arm to check blood pressure 2-3 times a week Active Blood Glucose Monitoring Suppl (FreeStyle Lite) w/Device kit Test 1 times by intradermal route 2 times every day Active Elastic Bandages & Supports (T.E.D. Anti-Embolism Stockings) misc Wear during the day, remove at night, size large Active Alcohol Swabs (Alcohol Prep) 70 % padsIndications :Type 2 diabetes mellitus with other specified complication, unspecified whether oysterman insulin use (CMS/HCC) USE DIRECTED 100 each 01/28/20 24 Active Farxiga 5 MG Take 1 tablet (5 mg) by mouth in the morning. 30 tablet 03/03/20 24 Active simvastatin (Zocor) 40 MG tablet Take 1 tablet (40 mg) by mouth at bedtime. 90 tablet 3 03/03/20 24 Active glucose blood (FREESTYLE LITE) test strip TEST BLOOD SUGAR TWICE DAILY 100 each 05/12/20 24 Active Eliquis 5 MG tabletIndicatio ns:Atrial fibrillation, unspecified type (CMS/HCC) TAKE 1 TABLET BY MOUTH TWICE DAILY IN THE MORNING AND AT BEDTIME 60 tablet 08/15/20 24 Active TRUEplus Lancets 33G miscIndications :Type 2 diabetes mellitus with stage 2 chronic kidney disease, without long-term current use of insulin (CMS/HCC) (CMS/HCC) USE DIRECTED TO TEST BLOOD SUGAR TWICE DAILY 100 each 11 08/16/20 24 Active metFORMIN (Glucophage) 500 MG tablet TAKE 1 TABLET BY MOUTH TWICE DAILY IN THE MORNING AND IN THE EVENING 180 tablet 1 11/08/19 25 Active metoprolol tartrate (Lopressor) 50 MG tabletIndicatio ns:Atrial fibrillation, unspecified type (CMS/HCC) TAKE 1 TABLET BY MOUTH TWICE DAILY IN THE MORNING AND AT BEDTIME 180 tablet 12/14/19 25 Active metoprolol tartrate (Lopressor) 50 MG tabletIndicatio ns:Atrial fibrillation, unspecified type (CMS/HCC) TAKE 1 TABLET BY MOUTH TWICE DAILY IN THE MORNING AND AT BEDTIME 180 tablet 09/04/19 25 025 Discontinued Active Problems Problem Noted Date Diagnosed Date Atrial fibrillation 04/22/2023 Overview (04/22/2023): On Eliquis and metoprolol, followed by cards last OV 04/14/23; echo 06/2022 with EF 60-65% Gout 01/01/2023 Assessment & Plan (01/01/2023 6:18 PM EDT): Patient has a history of gout. Reports he has not had a flare in a long time I could not get a time frame. Routine adult health maintenance 01/01/2023 Assessment & Plan (02/19/2023 10:26 AM EDT): He missed last colonoscopy due to knee pain. He requested that they contact his with new referral. Patient , Francy, phone number placed in referral. Assessment & Plan (01/01/2023 6:15 PM EDT): Patient is a poor hisorian Medications: Confirmed medications with pharmacy; removed htz and lisinopril. Allergies: reviewed. PHQ: 5 Smoking status: no smoke, drug, etoh, Lipids: Colonoscopy: had appointment but didn't go due to arthritis of knee. Eye exam: here a few years ago, would like new referral. Dental home: Has dentist in [place] Type 2 diabetes mellitus 08/10/2022 Assessment & Plan (02/19/2023 10:12 AM EDT): Glucose today 131. Type 2 diabetes mellitus (CMS/HCC) - Primary ? A1C Component Ref Range & Units 2 wk ago (01/01/23) 2 wk ago (01/01/23) 2 yr ago (02/09/20) Hemoglobin A1C 4.0 - 6.0 % 6.8??Abnormal? 6.5??High?? R, CM ?? Most recent A1C below 7. I do not want to alter his medications today. F/up 3 months for DM2 Assessment & Plan (01/15/2023 12:39 PM EDT): A1C Component Ref Range & Units 2 wk ago (01/01/23) 2 wk ago (01/01/23) 2 yr ago (02/09/20) Hemoglobin A1C 4.0 - 6.0 % 6.8??Abnormal?? 6.5??High?? R, CM Glucose 225 Patients A1C below 7. I am not going to alter medications today. F/up 2 months and check A1C glucose then. Discussed diet and exercise DASH diet plan handout given. Assessment & Plan (01/01/2023 6:17 PM EDT): A1C 6.8, no alterations to medications advised at this time. Proteinuria 04/13/2022 Hypertensive renal disease 05/12/2021 Stage 2 chronic kidney disease 05/12/2021 Venous insufficiency of leg 03/28/2020 Hearing loss in right ear 01/02/2013 Assessment & Plan (01/01/2023 6:20 PM EDT): Patient states that he used to be followed by audiology. He requests a referral so he can get hearing aids. Obesity 01/02/2013 Diverticular disease of colon 03/24/2007 Assessment & Plan (01/01/2023 10:14 AM EDT): Patient states he had a GI appointment but didn't go due to his arthritis. I could not find records of his last colonoscopy. Hypertension 08/30/1957 Assessment & Plan (02/19/2023 10:25 AM EDT): BP well managed no medication changes today. Counseled low-salt diet, advised increase in exercise to 30 min/ day most days, weight loss if applicable. call clinic for high BP >170/90 or low <90/60. Patient to continue monitoring BP F/up 3 months. Assessment & Plan (01/15/2023 12:37 PM EDT): Patients home BP especially diastolic is not well managed. Attempting to restart patient on hydrochlorothiazide. He reported having a swollen tongue before when he was taking lisinopril and hydrochlorothiazide. I informed him that BELEN inhibitors can cause angioedema/tongue swelling. I added that to his allergies list. BMP to check kidneys due to elevated creatinine levels. Assessment & Plan (01/01/2023 6:15 PM EDT): Patients BP before leaving 148/99, sent patient home with BP log, he has a F/up in 2 weeks for BP. ED precautions advised Mixed hyperlipidemia 08/30/1957 Encounters Date Type Department Care Team Description 12/14/2024 Telephone [facility] [address] [place] [address] Aj Grewal [place] february recalls 12/14/2024 Refill [facility] [address] [place], [place] [id number] Name, MD Guru Type 2 diabetes mellitus with stage 2 chronic kidney disease, without long-term current use of insulin ([facility]/HCC) ([facility]); Atrial fibrillation, unspecified type ([facility]/HCC) 12/12/2024 Refill [facility] [address] [place], [place] [phone] Tania Jorgensen MD Atrial fibrillation, unspecified type (CMS/HCC) 12/12/2024 Refill [facility] [address] [place], [place] [phone] Guru Eldridge MD Atrial fibrillation, unspecified type (CMS/HCC); Type 2 diabetes mellitus with stage 2 chronic kidney disease, without long-term current use of insulin ([facility]) (CMS/HCC) 11/10/2024 Population Health Risk Score [facility] () Department [address] [place] [id number] Provider, Population Health Generic 11/06/2024 Refill [facility] [address] [place] [address] Name, MD Guru from Last 3 Months Immunizations Name Administration Dates Next Due Influenza injectable quadriv alent IIV4 with preservative 05/17/2017,09/18/2016 Influenza injectable quadriv alent preservative free 05/15/2022,05/27/2021,07/21/2019 Influenza, IIV3, injectable 09/24/2014, 9 Influenza, seasonal, injecta ble, preservative free 07/03/2024 Moderna Covid-19 Vaccine 12+ 01/18/2021,12/22/19 21 Pfizer Covid-19 Vaccine 12+ 07/03/2024 Pneumococcal Conjugate PCV 20 03/03/2024 Pneumococcal Polysaccharide PPSV23 05/27/2021 TD (adult), 2 Lf tetanus tox oid, preservative free, adsorbed 03/28/2004 Tdap 03/26/2014 Zoster, Recombinant 03/30/2022,05/27/2021 Family History Medical History Relation Name Comments Alzheimer's disease Mother Parkinsonism Mother Relation Name Status Comments Mother Social History Tobacco Use Types Packs/Day Years Used Date Smoking Tobacco: Some Days Cigarettes Passive Smoke Exposure: Never Smokeless Tobacco: Never Tobacco Cessation:Ready to Q uit: Not Asked; Counseling Given: Not Answered Alcohol Use Standard Drinks/Week Comments Not Currently [...] not to disclose 2021 10:17 AM EDT Last Filed Vital Signs Vital Sign Reading Time Taken Comments Blood Pressure 122/81 07/03/2024 1:31 PM EST Pulse 60 07/03/2024 1:31 PM EST Temperature 36 ??C (96.8 ??F) 07/03/2024 1:31 PM EST Respiratory Rate 16 07/03/2024 1:31 PM EST Oxygen Saturation 98% 07/03/2024 1:31 PM EST Inhaled Oxygen Concentration - - Weight 76 kg (167 lb 9.6 oz) 07/03/2024 1:31 PM EST Height 154.9 cm (5' 1 ) 06/01/2024 10:02 AM EDT Body Mass Index 31.67 06/01/2024 10:02 AM EDT Plan of Treatment Health Maintenance Due Date Last Done Comments CT Colonography 1967 FIT DNA/Cologuard 1967 FIT 1967 FOBT 1967 Sigmoidoscopy 1967 Diabetes: Foot Exam 1977 Alcohol/Substance Use Screening 1979 Hepatitis B Vaccines (1 of 3 - 19+ 3-dose series) 1986 Colonoscopy 06/28/2022 06/28/2017, 06/01, 06/28/2017 Colorectal Cancer Screening 06/28/2022 Depression Screening 01/02/2024 01/01/2023, 01/02/20 23 Lipid Panel 01/14/2024 01/13/2023, 05/31, 12/27/2020 DTaP/Tdap/Td Vaccines (2 - Td or Tdap) 03/26/2024 03/26/2014, 03/28/2004 Diabetes: Hemoglobin A1C 09/03/2024 024, 05/24/2023, 01/01/2023, Additional history exists SDOH Screening 03/03/2025 03/03/2024 Eye Exam 04/29/2025 04/29/2023, 04/01, 04/29/2023, Additional history exists Tobacco Screening 07/03/2025 07/03/2024 RSV Patients and Patients Aged 60 years or older (1 - 1-dose 75+ series) 2042 Zoster Vaccines Completed 03/30/2022, 05/27/2021 HIV Screening Completed 06/19/2022 Hepatitis C Screening Completed 01/13/2023, 022 Pneumococcal Vaccine: 50+ Years Completed 03/03/2024, 05/27/2021 COVID-19 Vaccine Completed 07/03/2024, , 12/21/2020 Influenza Vaccine Completed 07/03/2024, , 05/27/2021, Additional history exists HIB Vaccines Aged Out No longer eligi ble based on patient's age to complete this topic HPV Vaccines Aged Out No longer eligi ble based on patient's age to complete this topic Hepatitis A Vaccines Aged Out No long er eligible based on patient's age to complete this topic IPV Vaccines Aged Out No longer eligi ble based on patient's age to complete this topic Meningococcal Vaccine Aged Out No ana beatriz eligible based on patient's age to complete this topic RSV under 20 months Aged Out No longe r eligible based on patient's age to complete this topic Rotavirus Vaccines Aged Out No longer eligible based on patient's age to complete this topic Procedures Procedure Name Priority Date/Time Associated Diagnosis Comments POCT GLYCATED HEMOGLOBIN, TOTAL Routine 03/03/2024 10:20 AM EDT Type 2 diabetes mellitus with stage 2 chronic kidney disease, without long-term current use of insulin (CMS/HCC) (CMS/HCC) HEPATITIS C AB W/REFL TO HCV RNA, QN, PCR Routine 01/13/2023 10:41 AM EDT Routine adult health maintenance LIPID PANEL, STANDARD Routine 01/13/2023 10:41 AM EDT Obesity, unspecified classification, unspecified obesity type, unspecified whether serious comorbidity present Routine adult health maintenance HIV 1/2 ANTIGEN/ANTIBODY, FOURTH GENERATION W/RFL Routine 06/19/2022 11:21 AM EDT HM COLONOSCOPY Routine 06/28/2017 from Last 3 Months or Most Recently Relevant to Health Maintenance Results * (ABNORMAL) POCT HGB A1C (03/03/2024 10:20 AM EDT) Hemoglobin A1C 6.1(A) 4.0 - 6.0 % QC Media Lot # [id number] Lot# Expiration Date ,945 Blood 03/03/2024 10:2 0 AM EDT us Guru Eldridge MD POINT OF CARE TEST ENTER/EDIT OR DERABLES Final Result * Hepatitis C Antibody with Reflex to HCV, RNA, Quantitative, Real-Time PCR (01/13/2023 10:41 AM EDT) Hepatitis C Antibody NON-REACT BON NON-REACT BON Bringrrt Index 0.06 <1.00 Bringrrt Comment: HCV antibody was non-reactive. There is no laboratory evidence of HCV infection. In most cases, no further action is required. However, if recent HCV exposure is suspected, a test for HCV RNA (test code 15785) is suggested. For additional information please refer to http://education.Dabble DB/faq/DBX34g7 (This link is being provided for informational/ educational purposes only.) Blood Venous blood specimen / Unknown 01/13/2023 10:41 AM EDT 01/13/2023 10:42 AM EDT Narrative [facility] - 01/13/2023 8:45 PM EDT FASTING:UNKNOWN FASTING: UNKNOWN Tray Brady [facility] LAB BLOOD ORDERABLES Final Res ult [facility] [address], [place] [address] [employer] [place] [facility] [address] [place] [address] * (ABNORMAL) Lipid Panel, Standard (01/13/2023 10:41 AM EDT) [facility] Cholesterol, Total 184 <200 mg/dL [employer] [place] [facility] HDL Cholesterol 52 > OR = 40 mg/dL [employer] [place] [facility] Triglycerides 172(H) <150 mg/dL [employer] [place] [facility] LDL Cholesterol 103(H) mg/dL (calc) [employer] [place] [facility] Comment: Reference range: <100 Desirable range <100 mg/dL for primary prevention; ?? <70 mg/dL for patients with CHD or diabetic patients with > or = 2 CHD risk factors. LDL-C is now calculated using the Tashi-Iesha calculation, which is a validated novel method providing better accuracy than the Friedewald equation in the estimation of LDL-C. Tashi HALEY et al. DEBBY. 2013;310(19): 5626-1082 (http://education.Oilex.FNZ/faq/MZG126) Chol/HDLC Ratio 3.5 <5.0 (calc) [employer] [place] [facility] Non-HDL Cholesterol 132(H) <130 mg/dL (calc) [employer] [place] [employer] Comment: For patients with diabetes plus 1 major ASCVD risk factor, treating to a non-HDL-C goal of <100 mg/dL (LDL-C of <70 mg/dL) is considered a therapeutic option. Blood Venous blood specimen / Unknown 01/13/2023 10:41 AM EDT 01/13/2023 10:42 AM EDT Narrative [facility] - 01/13/2023 8:45 PM EDT FASTING:UNKNOWN FASTING: UNKNOWN Tray Brady AGNP LAB BLOOD ORDERABLES Final Res ult [facility] [address] [facility], [place] [address] [employer] [facility] [address] [place] [address] * (ABNORMAL) HIV 1/2 ANTIGEN/ANTIBODY,FOURTH GENERATION W/RFL (06/19/2022 11:21 AM EDT) Pathologist [facility] HIV-1/2 ANTIGEN AND ANTIBODIES, 4TH GENERATION W/ REFLEX REPEATEDLY REACTIVE(A) NON-REAC TIVE CONVERTED LEGACY LABS Comment: The repeatedly reactive screening assay result is confirmed by duplicate repeat testing, and indicates a POSSIBLE presence of HIV-1 antibodies or HIV-2 ?? antibodies, and/or HIV-1 p24 antigen. Additional testing is required for diagnosis. ? Therefore, these screening results must be correlated ?? with results of reflex confirmatory tests, including the HIV-1/HIV-2 antibody differentiation assay and, if necessary, HIV-1 RNA, Qualitative Real-Time PCR. ?? The 4th generation HIV-1/2 Antigen/Antibody combination immunoassay is a screening test and should not be used alone for diagnosis. Repeatedly reactive results from the 4th generation screening test are only indicative of HIV infection when those screening results are confirmed to be positive by either the HIV-1/2 Antibody Differentiation Assay or the HIV-1 RNA, Qualitative Real-Time PCR test. ?? PLEASE NOTE: This information has been disclosed to you from records whose confidentiality may be protected by state law. If your state requires such protection, then the state law prohibits you from making any further disclosure of the information without the specific written consent of the person to whom it pertains, or as otherwise permitted by law. A general authorization for the release of medical or other information is NOT sufficient for this purpose. ?? The performance of this assay has not been clinically validated in patients less than 2 years old. ?? 06/19/2022 11:2 1 AM EDT Mariaa Foreman INFORMATION RESOURCES MANAGER LAB BLOOD ORDERABLES Final Res ult CONVERTED LEGACY LABS * (ABNORMAL) Colonoscopy (06/28/2017) Colonoscopy Abnormal( A) Normal Comment:2 small polyps, Mode rate Diverticulosis. Repeat 5 years 06/28/2017 Historical Provider HEALTH MAINTENANCE Final Result from Last 3 Months or Most Recently Relevant to Health Maintenance Insurance [employer] Care Teams Director Of Enterprise Applications Relationship Specialty Start Date End Date Name, MD Guru [address] [place] [address] PCP - General Internal Medicine 02/29/24
--- OUTSIDE RECORDS SUMMARY | 2024-12-29 13:29 | XMS_ITS | Clinical Summary ---
Author Organization [facility] Address [address] [place] [address] Phone Care Team Providers Care Land Degradation Analyst Name Role Phone Mariaa Foreman Primary Care Provider Unavailabl e Allergies Active Allergy Reactions Criticality Noted Date Comments Aspirin Other (see comments) 05/12/2021 Lisinopril Swelling 01/15/2023 Tongue swelling. Tongue swelling Penicillin V Other (see comments) 05/12/2021 Penicillin v potassium Penicillins 05/12/2021 Medications metFORMIN (GLUCOPHAGE) 500 MG tablet Take 1 tablet by mouth 1 (one) time each day Active metoprolol succinate XL (TOPROL XL) 25 MG 24 hr tablet Take 1 tablet by mouth 1 (one) time each day Active simvastatin (ZOCOR) 40 MG tablet Take 1 tablet by mouth 1 (one) time each day Active Eliquis 5 MG tablet Take 5 mg by mouth in the morning and 5 mg in the evening. 01/14/2023 Active Dapagliflozin Propanediol 10 MG tabletIndication s:Chronic kidney disease stage 2,Proteinuria, not otherwise specified Take 10 mg by mouth 1 (one) time each day in the morning 30 tablet 11 08/10/2024 08/10/20 25 Active Active Problems Problem Noted Date Diagnosed Date Paroxysmal atrial fibrillation 05/24/2023 Patient encounter status 01/01/2023 Overview (01/18/2023): Last Assessment & Plan: Patient is a poor hisorian Medications: Confirmed medications with pharmacy; removed htz and lisinopril. Allergies: reviewed. PHQ: 5 Smoking status: no smoke, drug, etoh, Lipids: Colonoscopy: had appointment but didn't go due to arthritis of knee. Eye exam: here a few years ago, would like new referral. Dental home: Has dentist in [place] Type 2 diabetes mellitus 08/10/2022 Overview (01/18/2023): Last Assessment & Plan: A1C Component Ref Range & Units 2 wk ago (01/01/23) 2 wk ago (01/01/23) 2 yr ago (02/09/20) Hemoglobin A1C 4.0 - 6.0 % 6.8??Abnormal?? 6.5??High?? R, CM Glucose 225 Patients A1C below 7. I am not going to alter medications today. F/up 2 months and check A1C glucose then. Discussed diet and exercise DASH diet plan handout given. Hypertensive disorder 04/13/2022 Obesity 04/13/2022 Proteinuria 04/13/2022 Chronic kidney disease stage 2 05/12/2021 Gout 05/12/2021 Hypertensive renal disease 05/12/2021 Hearing loss of right ear 01/02/2013 Overview (01/18/2023): Last Assessment & Plan: Patient states that he used to be followed by audiology. He requests a referral so he can get hearing aids. Diverticular disease of colon 03/24/2007 Overview (01/18/2023): Last Assessment & Plan: Patient states he had a GI appointment but didn't go due to his arthritis. I could not find records of his last colonoscopy. Mixed hyperlipidemia 08/30[birth year]1959 Social History Tobacco Use Types Packs/Day Years Used Date Smoking Tobacco: Never Smokeless Tobacco: Never Alcohol Use Standard Drinks/Week Comments Yes 1 (1 standard drink = 0.6 oz pur e alcohol) occasionally Sex and Gender Information Value Date Recorded Sex Assigned at Not on file Legal Sex Male 5:06 PM EST Gender Identity Not on file Sexual Orientation Not on file Last Filed Vital Signs Vital Sign Reading Time Taken Comments Blood Pressure 116/68 08/10/2024 2:20 PM EST Pulse 57 08/10/2024 1:54 PM EST Temperature - - Respiratory Rate - - Oxygen Saturation 98% 05/24/2023 3:46 PM EDT Inhaled Oxygen Concentration - - Weight 78 kg (172 lb) 08/10/2024 1:54 PM EST Height 152.4 cm (5') 05/24/2023 3:46 PM EDT Body Mass Index 33.59 05/24/2023 3:46 PM EDT Plan of Treatment Upcoming Encounters Date Type Department Care Team (Late st Contact Info) Description 02/08/2025 11:00 AM EDT Office Visit [facility] [address] [facility] [address] [place] [address] Yesica Menezes ARNP [address] [facility] [facility] [address] [place] [address] Health Maintenance Due Date Last Done Comments Hepatitis B Vaccine (1 of 3 - 19+ 3-dose series) 1986 Colorectal Cancer Screening: Annual FOBT 2016 Colorectal Cancer Screening: Colonoscopy 2016 Colorectal Cancer Screening: Sigmoidoscopy 2016 Diabetes: Ophthalmology Exam 05/13/2021 Diabetes: Pedal Pulse Checked 05/13/2021 Diabetes: Sensory Foot Exam 05/13/2021 Diabetes: Visual Foot Exam 05/13/2021 Diabetes: Hemoglobin A1C 06/03/2024 024, 05/24/2023, 01/01/2023 Pneumococcal Vaccine: 50+ Years Completed 4, 05/27/2021 Pneumococcal Vaccine: Peds ( 0 to 5 Years) and At-Risk Patients (6 to 49 Years) Discontinued 03/03/2024, 05/27/2021 Influenza Vaccine Completed 07/03/2024, , 05/27/2021, Additional history exists Procedures Procedure Name Priority Date/Time Associated Diagnosis Comments HEMOGLOBIN A1C Routine 05/24/2023 4:15 PM EDT from Last 3 Months or Most Recently Relevant to Health Maintenance Results * (ABNORMAL) Hemoglobin A1c (05/24/2023 4:15 PM EDT) Hemoglobin A1C 6.2(H) (4.0-5.6) % [facility] Comment: MONITORING: In known diabetic patients, hemoglobin A1c targets should be discussed with health care provider. DIAGNOSTIC USE: ??The [place] Diabetes Association (ADA) and the World Health Organization (WHO) recommend the use of HbA1c to diagnose diabetes using a threshold of 6.5%. Patients who have an HbA1c between 5.7% and 6.4% are considered at increased risk for developing diabetes in the future. CAUTION: Falsely low HbA1c results may be observed in patients with hemolytic anemia, homozygous forms of abnormal hemoglobin (e.g. SS, CC, SC), , recent blood loss or hemoglobin F greater than 7%. Fructosamine may be used as an alternate test in these cases. REFERENCE: ADA: Standards of Medical Care in Diabetes 2020, The Journal of Clinical and Applied Research and Education Volume 43, Supplement 1 Testing performed or reported by [facility] Reference [employer], a Service of [facility], [address] [place] [id number] Jasper Vines MD, Acid Dipper [facility]# [id number] 05/24/2023 4:15 PM EDT 05/24/2023 4:25 PM EDT us Jennifer Luu MD LAB BLOOD ORDERABLES Final Resu lt [facility] from Last 3 Months or Most Recently Relevant to Health Maintenance [place] [address] Medicaid [place] Care Teams Land Degradation Analyst Relationship Specialty Start Date End Date Mariaa Foreman [address] [place] [phone] PCP - General Family Medicine 02/25/21
--- OUTSIDE RECORDS SUMMARY | 2024-12-29 13:29 | XMS_ITS | Encounter Summary ---
Author Organization [employer] [facility] Address [address] 7t [place] [address] Care Team Providers Care Senior Bookkeeper Name Role Phone Tray Brady Primary Care Provider Unavail Bing Erickson Primary Care Provider [phone] Kristen Lazaro NP Primary Care Provider [phone] Name, Guru DIAS Primary Care Provider [phone] Reason for Visit * Reason Comments Med Refill Encounter Details Date Type Department Care Team (Late st Contact Info) Description 10/27/2022 Refill [facility] MEDICINE [address] [place], [place] [phone] Dorota Carey MD [address] [place] [address] Type 2 diabetes mellitus with other specified complication, unspecified whether terminal makeup operator insulin use (CMS/HCC) (Primary Dx) Social History Tobacco Use Types Packs/Day Years Used Date Smoking Tobacco: Never Assessed Sex and Gender Information Value Date Recorded Sex Assigned at Male 06/29/2022 10:17 AM EDT Legal Sex Male 10:16 AM EDT Gender Identity Choose not to disclose 10:17 AM EDT Sexual Orientation Choose not to disclose 2021 10:17 AM EDT documented as of this encounter Plan of Treatment Not on file documented as of this encounter Visit Diagnoses Diagnosis Type 2 diabetes mellitus with other specified complication, unspecified whether snf insulin use (CMS/HCC)- Primary documented in this encounter Care Teams Senior Bookkeeper Relationship Specialty Start Date End Date Tray Brady AGNP PCP - General Family Medicine 10/08/22 05/19/23 Bing Gamboa FNP [address] [place] [address] PCP - General Family Medicine 05/20/23 09/23/23 Kristen Lazaro NP 230 [place] [address] PCP - General Family Medicine 09/24/23 02/28/24 Guru Eldridge MD [address] [place] [address] PCP - General Internal Medicine 02/29/24 documented as of this encounter
--- OUTSIDE RECORDS SUMMARY | 2024-12-29 13:29 | XMS_ITS | Encounter Summary ---
Author Organization [employer] Address [address] 7t [place] [address] Care Team Providers Care Hospice Rn Name Role Phone Bing Gamboa NURSE GENERAL DUTY Primary Care Provider [phone] Kristen Lazaro NP Primary Care Provider [phone] Name, Guru DIAS Primary Care Provider [phone] Encounter Details Date Type Department Care Team (Late st Contact Info) Description 07/12/2023 Abstract [facility] MEDICINE [address] [place] [address] Jenni Holman Social History Tobacco Use Types Packs/Day Years Used Date Smoking Tobacco: Former Cigarettes Passive Smoke Exposure: Never Smokeless Tobacco: Never Alcohol Use Standard Drinks/Week Comments Not Currently 0 (1 standard drink = 0.6 oz pur e alcohol) Depression Answer Date Recorded Patient Health Questionnaire-9 Score 5 01/01/2023 Housing Stability Answer Date Recorded What is your housing situation today? I have don do 06/15/[address] you li ve. Do you have problems with any of the following? None of the above 06/15/2023 Food Insecurity Answer Date Recorded Within the past 12 months, y ou worried that your food would run out before you got money to buy more: Never True 06/15/2023 Within the past 12 months,th e food you bought just didn't last and you didn't have enough money to get more: Never True Transportation Answer Date Recorded In the past 12 months, has l ack of transportation kept you from medical appts, meetings, work or from getting things needed for daily living? No 06/15/2023 Utilities Answer Date Recorded In the past 12 months, has t he electric, gas, oil or water company threatened to shut off services in your home? No 06/15/2023 Depression Answer Date Recorded Patient Health Questionnaire-2 [...] on file documented as of this encounter Procedures Procedure Name Priority Date/Time Associated Diagnosis Comments HM COLONOSCOPY Routine 06/28/2017 documented in this encounter Results * Hm Colonoscopy (06/28/2017) Colonoscopy Normal Normal Narrative Jenni Holman - 06/28/2017 Recommended 5 year follow up Historical Provider HEALTH MAINTENANCE Final Result documented in this encounter Visit Diagnoses Not on filedocumented in this encounter Additional Health Concerns Assessment Noted Time PHQ-9 Depression Total Score: 5 01/02/20 23 9:27 AM EDT documented as of this encounter Care Teams Hospice Rn Relationship Specialty Start Date End Date Bing Gamboa FNP [address] [place] [address] PCP - General Family Medicine 05/20/23 09/23/23 Kristen Lazaro NP 230 [place] [address] PCP - General Family Medicine 09/24/23 02/28/24 Guru Eldridge MD 230 [place] [address] PCP - General Internal Medicine 02/29/24 documented as of this encounter
--- OUTSIDE RECORDS SUMMARY | 2024-12-29 13:29 | XMS_ITS | Encounter Summary ---
Author Organization [employer] Address [address] 7t [place] [address] Care Team Providers Care Quality Technician Name Role Phone Name, Guru DIAS Primary Care Provider [phone] Reason for Visit * Reason Comments Med Refill Encounter Details Date Type Department Care Team ([facility] st Contact Info) Description 12/12/2024 Refill [facility] MED & PEDS [address] [place], [place] [phone] Name, MD Guru [address] [place] [address] Atrial fibrillation, unspecified type ([facility]); Type 2 diabetes mellitus with stage 2 chronic kidney disease, without long-term current use of insulin ([facility]) ([facility]) Social History Tobacco Use Types Packs/Day Years Used Date Smoking Tobacco: Some Days Cigarettes Passive Smoke Exposure: Never Smokeless Tobacco: Never Alcohol Use Standard Drinks/Week Comments Not Currently 0 (1 standard drink = 0.6 oz pur e alcohol) Depression Answer Date Recorded Patient Health Questionnaire-9 Score 5 01/01/2023 Housing Stability Answer Date Recorded What is your housing situation today? I have donanaya do 03/03/[address] you [...] as of this encounter Visit Diagnoses Diagnosis Atrial fibrillation, unspecified type ([facility]) Type 2 diabetes mellitus with stage 2 chronic kidney disease, without long-term current use of insulin ([facility]) ([facility]) documented in this encounter Additional Health Concerns Assessment Noted Time PHQ-9 Depression Total Score: 5 01/02/20 23 9:27 AM EDT documented as of this encounter Care Teams Quality Technician Relationship Specialty Start Date End Date Name, MD Guru [address] [place] [address] PCP - General Internal Medicine 02/29/24 documented as of this encounter
--- OUTSIDE RECORDS SUMMARY | 2024-12-29 13:29 | XMS_ITS | Encounter Summary ---
Author Organization [employer] Address [address] 7t [place] [address] Care Team Providers Care Medical Scientific Officer Name Role Phone Name, Guru DIAS Primary Care Provider [phone] Reason for Visit * Reason Comments Med Refill Encounter Details Date Type Department Care Team ([facility] st Contact Info) Description 12/14/2024 Refill [facility] 230 [place] [address] Name, MD Guru [address] [place], [place] [phone] Type 2 diabetes mellitus with stage 2 chronic kidney disease, without long-term current use of insulin (CMS/HCC) ([facility]/HCC); Atrial fibrillation, unspecified type (CMS/HCC) Social History Tobacco Use Types Packs/Day Years [...] Diagnoses Diagnosis Type 2 diabetes mellitus with stage 2 chronic kidney disease, without long-term current use of insulin (CMS/HCC) (CMS/HCC) Atrial fibrillation, unspecified type (CMS/HCC) documented in this encounter Additional Health Concerns Assessment Noted Time PHQ-9 Depression Total Score: 5 01/02/20 23 9:27 AM EDT documented as of this encounter Care Teams Medical Scientific Officer Relationship Specialty Start Date End Date Name, MD Guru [address] [place] [address] PCP - General Internal Medicine 02/29/24 documented as of this encounter
--- OUTSIDE RECORDS SUMMARY | 2024-12-29 13:29 | XMS_ITS | Encounter Summary ---
Author Organization [employer] Address [address] 7[address] [place] [address] Care Team Providers Care Cloth Finishing Range Operator Chief Name Role Phone Bing GamboaP Primary Care Provider [phone] Kristen Lazaro NP Primary Care Provider [phone] Chente, Guru DIAS Primary Care Provider [phone] Reason for Visit * Reason Comments Med Refill Encounter Details Date Type Department Care Team (Late st Contact Info) Description 08/12/2023 Refill [facility] MEDICINE [address] [place] [address] Tray Brady AGNP Social History Tobacco Use Types Packs/Day Years [...] documented as of this encounter Care Teams Cloth Finishing Range Operator Chief Relationship Specialty Start Date End Date Bing Gamboa FNP [address] [place] [address] PCP - General Family Medicine 05/20/23 09/23/23 Kristen Lazaro NP 230 [place] [address] PCP - General Family Medicine 09/24/23 02/28/24 Guru Eldridge MD 230 [place] [address] PCP - General Internal Medicine 02/29/24 documented as of this encounter
== END 2024-12-29 13:09 | disposition home or self-care (01) ==
LOC: HO.HAP 13:08
PROVIDERS: Visit Provider Registered Nurse Community Health
DX: Z46.1 Encounter for fitting and adjustment of hearing aid (principal); H90.3 Sensorineural hearing loss, bilateral
CPT/HCPCS: 92593; 99499

== ENCOUNTER 2025-05-03 13:17 | Outpatient (REF) | payer MEDICAID, SELFPAY ==
--- OUTSIDE RECORDS SUMMARY | 2025-05-03 14:32 | XMS_ITS | Encounter Summary ---
Author Organization [employer] Address [address] [place] [address] Care Team Providers Care Hull Inspector Name Role Phone Name, Guru DIAS Primary Care Provider [phone] Reason for Visit * Reason Comments Med Refill Encounter Details Date Type Department Care Team ([facility] st Contact Info) Description 09/27/2024 Refill [facility] [address] [place], [place] [phone] Name, MD Guru [address] [place] [address] Social History Tobacco Use Types Packs/Day Years [...] as of this encounter Plan of Treatment Upcoming Encounters Date Type Department Care Team (Late st Contact Info) Description 05/22/2025 2:30 PM EDT Office Visit [facility] OPTOMETRY [address] [place] [address] Rohit, Umm, OD [address] [place] [address] documented as of this encounter Visit Diagnoses Not on filedocumented in this encounter Additional Health Concerns Assessment Noted Time PHQ-9 Depression Total Score: 5 01/02/20 23 9:27 AM EDT documented as of this encounter Care Teams Hull Inspector Relationship Specialty Start Date End Date Name, MD Guru [address] [place] [address] PCP - General Internal Medicine 02/29/24 documented as of this encounter
--- OUTSIDE RECORDS SUMMARY | 2025-05-03 14:32 | XMS_ITS | Clinical Summary ---
Author Organization [employer] [facility] Address [address] [facility] 7t [place] [address] Care Team Providers Care Cisco Certified Network Associate Name Role Phone Name, Guru DIAS Primary Care Provider [phone] Allergies Active Allergy Reactions Criticality Noted Date [...] day, remove at night, size large Active Farxiga 5 MG Take 1 tablet (5 mg) by mouth in the morning. 30 tablet 11 4 Active simvastatin (Zocor) 40 MG tablet Take 1 tablet (40 mg) by mouth at bedtime. 90 tablet 3 4 Active glucose blood (FREESTYLE LITE) test strip TEST BLOOD SUGAR TWICE DAILY 100 each 11 4 Active Eliquis 5 MG tabletIndication s:Atrial fibrillation, unspecified type (CMS/HCC) TAKE 1 TABLET BY MOUTH TWICE DAILY IN THE MORNING AND AT BEDTIME 60 tablet 11 4 Active metFORMIN (Glucophage) 500 MG tablet TAKE 1 TABLET BY MOUTH TWICE DAILY IN THE MORNING AND IN THE EVENING 180 tablet 1 5 Active Alcohol Swabs (Alcohol Prep) 70 % padsIndications: Type 2 diabetes mellitus with other specified complication, unspecified whether mcc insulin use (CMS/[facility]) USE DIRECTED TO TEST BLOOD SUGAR TWICE DAILY 100 each 5 5 Active TRUEplus Lancets 33G miscIndications: Type 2 diabetes mellitus with stage 2 chronic kidney disease, without long-term current use of insulin ([facility]) ([facility]) USE DIRECTED TO TEST BLOOD SUGAR TWICE DAILY 100 each 11 5 Active metoprolol tartrate (Lopressor) 50 MG tabletIndication s:Atrial fibrillation, unspecified type ([facility]) TAKE 1 TABLET BY MOUTH TWICE DAILY IN THE MORNING AND AT BEDTIME 180 tablet 5 Active Active Problems Problem Noted Date Diagnosed [...] new referral. Dental home: Has dentist in [place] Type 2 diabetes mellitus 08/10/2022 Assessment & Plan (02/19/2023 10:12 AM EDT): Glucose today 131. Type 2 diabetes mellitus ([facility]) - Primary A1C Component Ref Range & Units 2 wk ago (01/01/23) 2 wk ago (01/01/23) 2 yr ago (02/09/20) Hemoglobin A1C 4.0 - 6.0 % 6.8 Abnormal 6.5 High R, CM Most recent A1C below 7. I do not want to alter his medications today. F/up 3 months for DM2 Assessment & Plan (01/15/2023 12:39 PM EDT): A1C Component Ref Range & Units 2 wk ago (01/01/23) 2 wk ago (01/01/23) 2 yr ago (02/09/20) Hemoglobin A1C 4.0 - 6.0 % 6.8 Abnormal 6.5 High R, CM Glucose 225 Patients A1C below [...] Encounters Date Type Department Care Team Description 03/15/2025 Refill [facility] [address] [place] [address] Name, MD Guru Atrial fibrillation, unspecified type ([facility]) 03/09/2025 Refill [facility] [address] [place] [address] Name, MD Guru Type 2 diabetes mellitus with stage 2 chronic kidney disease, without long-term current use of insulin ([facility]) ([facility]) from Last 3 Months Immunizations Immunization Administration Dates Next Due Influenza injectable quadriv [...] 60 07/03/2024 1:31 PM EST Temperature 36 C (96.8 F) 07/03/2024 1:31 PM EST Respiratory Rate 16 07/03/2024 1:31 PM EST Oxygen Saturation 98% 07/03/2024 1:31 PM EST Inhaled Oxygen Concentration - - Weight 76 kg (167 lb 9.6 oz) 07/03/2024 1:31 PM EST Height 154.9 cm (5' 1 ) 06/01/2024 10:02 AM EDT Body Mass Index 31.67 06/01/2024 10:02 AM EDT Plan of Treatment Upcoming Encounters Date Type Department Care Team (Late st Contact Info) Description 05/22/2025 2:30 PM EDT Office Visit [facility] OPTOMETRY [address] [place] [address] Rohit, Umm, OD [address] [place] [address] Health Maintenance Due Date Last Done Comments CT Colonography 1967 FIT DNA/Cologuard 1967 FIT 1967 FOBT 1967 Sigmoidoscopy 1967 Disability Screening 1967 Diabetes: Foot Exam 1977 Alcohol/Substance Use Screening 1979 Hepatitis B Vaccines (1 of 3 - 19+ 3-dose series) 1986 Colonoscopy 06/28/2022 06/28/2017, 06/01, 06/28/2017 Colorectal Cancer Screening 06/28/2022 Depression Screening 01/02/2024 01/01/2023, 01/02/20 23 Lipid Panel 01/14/2024 01/13/2023, 05/31, 12/27/2020 DTaP/Tdap/Td Vaccines (2 - Td or Tdap) 03/26/2024 03/26/2014, 03/28/2004 Diabetes: Hemoglobin A1C 09/03/2024 024, 01/01/2023, 02/09/2020 SDOH Screening 03/03/2025 03/03/2024 Eye Exam 04/29/2025 04/29/2023, 04/01, 04/29/2023, Additional history exists Influenza Vaccine (#1) 2025 , 05/15/2022, 05/27/2021, Additional history exists Tobacco Screening 07/03/2025 07/03/2024 RSV Patients and Patients Aged 60 years or older (1 - 1-dose 75+ series) 2042 Zoster Vaccines Completed 03/30/2022, 05/27/2021 HIV Screening Completed 06/19/2022 Hepatitis C Screening Completed 01/13/2023, 022 Pneumococcal Vaccine: 50+ Years Completed 03/03/2024, 05/27/2021 COVID-19 Vaccine Completed 07/03/2024, , 12/21/2020 HIB Vaccines Aged Out No longer eligi [...] patient's age to complete this topic Meningococcal B Vaccine Aged Out No l onger eligible based on patient's age to complete [...] disease, without long-term current use of insulin ([facility]) ([facility]) HEPATITIS C AB W/REFL TO HCV RNA, [...] POCT HGB A1C (03/03/2024 10:20 AM EDT) [facility] Hemoglobin A1C 6.1(A) 4.0 - 6.0 % QC Media Lot # [id number] Lot# Expiration Date ,162 Blood 03/03/2024 10:2 0 AM EDT Guru Eldridge MD POINT OF CARE TEST ENTER/EDIT OR DERABLES Final Result * Hepatitis C Antibody with Reflex to HCV, RNA, Quantitative, Real-Time PCR (01/13/2023 10:41 AM EDT) [facility] Hepatitis C Antibody NON-REACT BON NON-REACT BON [facility] Index 0.06 <1.00 [employer] Comment: HCV antibody was non-reactive. There is no laboratory evidence of HCV infection. In most cases, no further action is required. However, if recent HCV exposure is suspected, a test for HCV RNA (test code 03943) is suggested. For additional information please refer to http://education.CompareAway/faq/ECP23d7 (This link is being provided for informational/ educational purposes only.) Blood Venous blood specimen / Unknown 01/13/2023 10:41 AM EDT 01/13/2023 10:42 AM EDT Narrative [facility] - 01/13/2023 8:45 PM EDT FASTING:UNKNOWN FASTING: UNKNOWN Tray HALE LAB BLOOD ORDERABLES Final Res ult [facility] [address], [place] [address] [employer] [place] [employer] [address] [place] [address] * (ABNORMAL) Lipid Panel, Standard (01/13/2023 10:41 AM EDT) [facility] Cholesterol, Total 184 <200 mg/dL [employer] [facility] HDL Cholesterol 52 > OR = 40 mg/dL [employer] [facility] Triglycerides 172(H) <150 mg/dL [employer] [facility] LDL Cholesterol 103(H) mg/dL (calc) [employer] [facility] Comment: Reference range: <100 Desirable range <100 mg/dL for primary prevention; <70 mg/dL for patients with CHD or diabetic patients with > or = 2 CHD risk factors. LDL-C is now calculated using the Bernard calculation, which is a validated novel method providing better accuracy than the Friedewald equation in the estimation of LDL-C. Tashi SS et al. DEBBY. 2013;310(19): 5989-7826 (http://education.Zero2IPO/faq/CRL250) Chol/HDLC Ratio 3.5 <5.0 (calc) [employer] [facility] Non-HDL Cholesterol 132(H) <130 mg/dL (calc) [employer] [place] [employer] Comment: For patients with diabetes plus 1 major ASCVD risk factor, treating to a non-HDL-C goal of <100 mg/dL (LDL-C of <70 mg/dL) is considered a therapeutic option. Blood Venous blood specimen / Unknown 01/13/2023 10:41 AM EDT 01/13/2023 10:42 AM EDT Narrative [facility] - 01/13/2023 8:45 PM EDT FASTING:UNKNOWN FASTING: UNKNOWN Tray Brady [facility] LAB BLOOD ORDERABLES Final Res ult [facility] [address], [place] [address] [employer] [facility] [address] [place] [address] * (ABNORMAL) HIV 1/2 ANTIGEN/ANTIBODY,FOURTH GENERATION W/RFL (06/19/2022 11:21 AM EDT) [facility] HIV-1/2 ANTIGEN AND ANTIBODIES, 4TH GENERATION W/ REFLEX REPEATEDLY REACTIVE(A) NON-REAC TIVE CONVERTED LEGACY LABS Comment: The repeatedly reactive screening assay result is confirmed by duplicate repeat testing, and indicates a POSSIBLE presence of HIV-1 antibodies or HIV-2 antibodies, and/or HIV-1 p24 antigen. Additional testing is required for diagnosis. Therefore, these screening results must be correlated with results of reflex confirmatory tests, including the HIV-1/HIV-2 antibody differentiation assay and, if necessary, HIV-1 RNA, Qualitative Real-Time PCR. The 4th generation HIV-1/2 Antigen/Antibody combination immunoassay is a screening test and should not be used alone for diagnosis. Repeatedly reactive results from the 4th generation screening test are only indicative of HIV infection when those screening results are confirmed to be positive by either the HIV-1/2 Antibody Differentiation Assay or the HIV-1 RNA, Qualitative Real-Time PCR test. PLEASE NOTE: This information has been disclosed [...] information is NOT sufficient for this purpose. The performance of this assay has not been clinically validated in patients less than 2 years old. 06/19/2022 11:2 1 AM EDT Mariaa Foreman OPERATIONS EXAMINER LAB BLOOD ORDERABLES Final Res ult CONVERTED LEGACY LABS * (ABNORMAL) Colonoscopy (06/28/2017) Colonoscopy Abnormal( A) Normal Comment:2 small polyps, Mode rate Diverticulosis. Repeat 5 years 06/28/2017 Historical Provider HEALTH MAINTENANCE Final Result from Last 3 Months or Most Recently Relevant to Health Maintenance Insurance [facility] C3 Care Teams [employer] Certified Network Associate Relationship Specialty Start Date End Date Name, MD Guru [address] [place] [address] PCP - General Internal Medicine 02/29/24
--- OUTSIDE RECORDS SUMMARY | 2025-05-03 14:32 | XMS_ITS | Encounter Summary ---
Author Organization [employer] Address [address] [facility] 7t [place] [address] Care Team Providers Care Legal Cashier Name Role Phone Name, Guru DIAS Primary Care Provider [phone] Reason for Visit * Reason Comments Med Refill Encounter Details Date Type Department Care Team ([facility] st Contact Info) Description 12/14/[address] [facility] [address] [place] [address] Name, MD Guru [address] [place], [place] [phone] Type 2 diabetes mellitus with stage 2 chronic kidney disease, without long-term current use of insulin (CMS/HCC) ([facility]); Atrial fibrillation, unspecified type (CMS/HCC) Social History [...] Description 05/22/2025 2:30 PM EDT Office Visit [facility] OPTOMETRY [address] [place] [address] Rohit, Umm, OD [address] [place] [address] documented as of this encounter Visit Diagnoses Diagnosis Type 2 diabetes mellitus with stage 2 chronic kidney disease, without long-term current use of insulin (CMS/HCC) ([facility]) Atrial fibrillation, unspecified type (CMS/HCC) documented in this encounter Additional Health Concerns Assessment Noted Time PHQ-9 Depression Total Score: 5 01/02/20 23 9:27 AM EDT documented as of this encounter Care Teams Legal Cashier Relationship Specialty Start Date End Date Name, MD Guru [address] [place] [address] PCP - General Internal Medicine 02/29/24 documented as of this encounter
--- OUTSIDE RECORDS SUMMARY | 2025-05-03 14:32 | XMS_ITS | Encounter Summary ---
Author Organization [employer] Address [address] [address] [facility] [address] [place] [address] Care Team Providers Care Erp Project Manager Name Role Phone Name, Guru DIAS Primary Care Provider [phone] Reason for Visit * Reason Comments Med Refill Encounter Details Date Type Department Care Team ([facility] st Contact Info) Description 12/12/2024 Refill [facility] MED & PEDS [address] [place], [place] [phone] Name, MD Guru [address] [place] [address] Atrial fibrillation, unspecified type ([facility]); Type 2 diabetes mellitus with stage 2 chronic kidney disease, without long-term current use of insulin ([facility]) ([facility]) Social History Tobacco Use Types [...] 2:30 PM EDT Office Visit [facility] OPTOMETRY [address] [place] [address] Rohit, Umm, OD [address] [place] [address] documented as of this encounter Visit Diagnoses Diagnosis Atrial fibrillation, unspecified type (CMS/HCC) Type 2 diabetes mellitus with stage 2 chronic kidney disease, without long-term current use of insulin (CMS/HCC) (CMS/HCC) documented in this encounter Additional Health Concerns Assessment Noted Time PHQ-9 Depression Total Score: 5 01/02/20 9:27 AM EDT documented as of this encounter Care Teams Erp Project Manager Relationship Specialty Start Date End Date Name, MD Guru [address] [place] [address] PCP - General Internal Medicine 02/29/24 documented as of this encounter
--- OUTSIDE RECORDS SUMMARY | 2025-05-03 14:32 | XMS_ITS | Encounter Summary ---
Author Organization [employer] [facility] Address [address] [place] [address] 7t [place] [address] Care Team Providers Care Wire Fence Builder Name Role Phone Tray Brady AGNP Primary Care Provider Unavail Bing EricksonP Primary Care Provider [phone] Kristen Lazaro NP Primary Care Provider [phone] Name, Guru DIAS Primary Care Provider [phone] Reason for Visit * Reason Comments Med Refill Encounter Details Date Type Department Care Team (Late st Contact Info) Description 10/27/[address] [facility] MEDICINE [address] [place] [address] Dorota Carey MD [address] [place], [place] [phone] Type 2 diabetes mellitus with other specified complication, unspecified whether fci insulin use ([facility]) (Primary Dx) Social History Tobacco Use Types [...] PM EDT Office Visit [facility] OPTOMETRY [address] [place], [place] [phone] Umm Bee, OD [address] [place] [address] documented as of this encounter Visit Diagnoses Diagnosis Type 2 diabetes mellitus with other specified complication, unspecified whether fci insulin use ([facility])- Primary documented in this encounter Care Teams Wire Fence Builder Relationship Specialty Start Date End Date Tray Brady AGNP PCP - General Family Medicine 10/08/22 05/19/23 Bing Gamboa FNP [address] [place] [address] PCP - General Family Medicine 05/20/23 09/23/23 Kristen Lazaro NP [address] [place] [address] PCP - General Family Medicine 09/24/23 02/28/24 Name, MD Guru [address] [place] [address] PCP - General Internal Medicine 02/29/24 documented as of this encounter
--- OUTSIDE RECORDS SUMMARY | 2025-05-03 14:33 | XMS_ITS | Clinical Summary ---
Author Organization [facility] Address [address] [facility] [address] [place] [address] Phone Care Team Providers Care Dairy Worker Name Role Phone Mariaa Foreman Primary Care [...] morning and 5 mg in the evening. 3 Active Dapagliflozin Propanediol 10 MG tabletIndication s:Chronic kidney disease stage 2,Proteinuria, not otherwise specified Take 10 mg by mouth 1 (one) time each day in the morning 30 tablet 11 4 08/10/20 25 Active Additional Information Patient taking differently: 5 mgOral Every morning, Reported on 04/05/2025 metoprolol tartrate (LOPRESSOR) 50 MG tablet Take 50 mg by mouth in the morning and 50 mg in the evening. Active Active Problems Problem Noted Date Diagnosed [...] new referral. Dental home: Has dentist in [place] Type 2 diabetes mellitus 08/10/2022 Overview (01/18/2023): [...] of his last colonoscopy. Mixed hyperlipidemia 08/30/1957 Encounters Date Type Department Care Team Description 04/05/2025 1:45 PM EDT Office Visit [facility] [address] [phone] Yesica Menezes ARNP Chronic kidney disease stage 2 (Primary Dx); Proteinuria, not otherwise specified from Last 3 Months Social History Tobacco Use Types Packs/Day Years Used Date Smoking Tobacco: Never Smokeless Tobacco: Never Alcohol Use Standard Drinks/Week Comments Not Currently 1 (1 standard drink = 0.6 oz pur e alcohol) occasionally Sex and Gender Information Value Date Recorded Sex Assigned at Not on file Legal Sex Male 5:06 PM EST Gender Identity Not on file Sexual Orientation Not on file Last Filed Vital Signs Vital Sign Reading Time Taken Comments Blood Pressure 120/80 04/05/2025 1:46 PM EDT Pulse 59 04/05/2025 1:46 PM EDT Temperature - - Respiratory Rate - - Oxygen Saturation 98% 05/24/2023 3:46 PM EDT Inhaled Oxygen Concentration - - Weight 77.1 kg (170 lb) 04/05/2025 1:46 PM EDT Height 152.4 cm (5') 05/24/2023 3:46 PM EDT Body Mass Index 33.2 05/24/2023 3:46 PM EDT Plan of Treatment Upcoming Encounters Date Type Department Care Team (Late st Contact Info) Description 10/04/2025 1:15 PM EST Office Visit [facility] [address] [phone] Yesica Menezes ARNP [address] [phone] Health Maintenance Due Date Last Done Comments Hepatitis B Vaccine (1 of 3 - 19+ 3-dose series) 1986 Colorectal Cancer Screening: Annual FOBT 2016 Colorectal Cancer Screening: Colonoscopy 2016 Colorectal Cancer Screening: Sigmoidoscopy 2016 Diabetes: Ophthalmology Exam 05/13/2021 Diabetes: Pedal Pulse Checked 05/13/2021 Diabetes: Sensory Foot Exam 05/13/2021 Diabetes: Visual Foot Exam 05/13/2021 Diabetes: Hemoglobin A1C 06/03/2024 024, 05/24/2023, 01/01/2023 Influenza Vaccine (#1) 2025 4, 05/15/2022, 05/27/2021, Additional history exists Pneumococcal Vaccine: 50+ Years Completed 4, 05/27/2021 Pneumococcal Vaccine: Peds ( 0 to 5 Years) and At-Risk Patients (6 to 49 Years) Discontinued 03/03/2024, 05/27/2021 Procedures Procedure Name Priority Date/Time Associated Diagnosis Comments HEMOGLOBIN A1C Routine 05/24/2023 4:15 PM EDT from Last 3 Months or Most Recently Relevant to Health Maintenance Results * (ABNORMAL) Hemoglobin A1c (05/24/2023 4:15 PM EDT) Hemoglobin A1C 6.2(H) (4.0-5.6) % [facility] Comment: MONITORING: In known diabetic patients, hemoglobin A1c targets should be discussed with health care provider. DIAGNOSTIC USE: The [place] [employer] (ADA) and the World Health [...] Supplement 1 Testing performed or reported by [facility], a Service of [facility], [address] [place] [address] Jasper Vines MD, Waiter [facility]# [id number] 05/24/2023 4:15 PM EDT 05/24/2023 4:25 PM EDT us Jennifer Luu MD LAB BLOOD ORDERABLES Final Resu lt [facility] from Last 3 Months or Most Recently Relevant to Health Maintenance Insurance [place] Care Teams Dairy Worker Relationship Specialty Start Date End Date Mariaa Foreman [address] [place] [address] PCP - General Family Medicine 02/25/21
--- OUTSIDE RECORDS SUMMARY | 2025-05-03 14:33 | XMS_ITS | Encounter Summary ---
Author Organization [facility] Address [address] [place] [address] Care Team Providers Care Therapeutic Recreation Director Name Role Phone Tray Brady Primary Care Provider Unavail Bing EricksonP Primary Care Provider [phone] Kristen Lazaro NP Primary Care Provider [phone] Name, Guru DIAS Primary Care Provider [phone] Reason for Visit * Reason Onset Date Comments Referral 01/18/2023 Encounter Details Date Type Department Care Team (Late st Contact Info) Description 01/18/2023 Telephone [facility] MED[facility] [address] [place], [place] [id number] Tray Brady AGNP Referral Social History Tobacco [...] [facility]. Please contact pt at [phone] documented in this encounter Plan of Treatment Upcoming Encounters Date Type Department Care Team (Late st Contact Info) Description 05/22/2025 2:30 PM EDT Office Visit [facility] OPTOMETRY [address] [place], [place] [phone] Umm Bee, OD [address] [place] [address] documented as of this encounter Visit Diagnoses Not on filedocumented in this encounter Additional Health Concerns Assessment Noted Time PHQ-9 Depression Total Score: 5 01/02/20 9:27 AM EDT documented as of this encounter Care Teams Therapeutic Recreation Director Relationship Specialty Start Date End Date Tray Brady AGNP PCP - General Family Medicine 10/08/22 05/19/23 Bing Gamboa FNP [address] [place] [address] PCP - General Family Medicine 05/20/23 09/23/23 Kristen Lazaro NP [address] [place] [address] PCP - General Family Medicine 09/24/23 02/28/24 Guru Eldridge MD [address] [place] [address], [place] [address] PCP - General Internal Medicine 02/29/24 documented as of this encounter
--- OUTSIDE RECORDS SUMMARY | 2025-05-03 14:33 | XMS_ITS | Encounter Summary ---
Author Organization [employer] Address [address] [facility] [address] [place] [address] Care Team Providers Care Supervisor [employer] Name Role Phone Bee Bing TIRE FABRICATOR Primary Care Provider [phone] Kristen Lazaro NP Primary Care Provider [phone] Guru Eldridge MD Primary Care Provider [phone] Reason for Visit * Reason Comments Med Refill Encounter Details Date Type Department Care Team (Late st Contact Info) Description 08/12/2023 Refill [facility] MED[facility]INE [address] [place] [address] Tray Brady AGNP Social History Tobacco Use [...] Description 05/22/2025 2:30 PM EDT Office Visit [facility] OPTOMETRY [address] [place] [address] Rohit, Megan, OD [address] [place] [address] documented as of this encounter Visit Diagnoses Not on filedocumented in this encounter Additional Health Concerns Assessment Noted Time PHQ-9 Depression Total Score: 5 01/02/20 23 9:27 AM EDT documented as of this encounter Care Teams Supervisor [employer] Relationship Specialty Start Date End Date Bing Gamboa FNP [address] [place] [address] PCP - General Family Medicine 05/20/23 09/23/23 Kristen Lazaro NP [address] [place] [address] PCP - General Family Medicine 09/24/23 02/28/24 Guru Eldridge MD [address] [place] [id number] PCP - General Internal Medicine 02/29/24 documented as of this encounter
--- OUTSIDE RECORDS SUMMARY | 2025-05-03 14:33 | XMS_ITS | Encounter Summary ---
Author Organization [facility] Address [address] [place] [address] Care Team Providers Care Trolley Wire Installer Name Role Phone Bee Bing ANALYTICS DEVELOPER Primary Care Provider [phone] Kristen Lazaro NP Primary Care Provider [phone] Name, Guru DIAS Primary Care Provider [phone] Encounter Details Date Type Department Care Team (Late st Contact Info) Description 07/12/2023 Abstract [facility] [address] [place] [address] Jenni Holman Social History Tobacco Use Types [...] Description 05/22/2025 2:30 PM EDT Office Visit [facility] OPTOMETRY [address] [place], [place] [phone] RohitUmm long, OD [address] [place] [address] documented as of this encounter Procedures Procedure Name Priority Date/Time Associated Diagnosis Comments COLONOSCOPY Routine 06/28/2017 documented in this encounter Results * Colonoscopy (06/28/2017) Colonoscopy Normal Normal Narrative Jenni Holman - 06/28/2017 Recommended 5 year follow up us Historical Provider HEALTH MAINTENANCE Final Result documented in this encounter Visit Diagnoses Not on filedocumented in this encounter Additional Health Concerns Assessment Noted Time PHQ-9 Depression Total Score: 5 01/02/20 23 9:27 AM EDT documented as of this encounter Care Teams Trolley Wire Installer Relationship Specialty Start Date End Date Bing Gmaboa FNP [address] [place] [address] PCP - General Family Medicine 05/20/23 09/23/23 Kristen Lazaro NP [address] [place] [address] PCP - General Family Medicine 09/24/23 02/28/24 Guru Eldridge MD [address] [place] [address] PCP - General Internal Medicine 02/29/24 documented as of this encounter
[2025-05-03 17:04] LABS: Folate 11.2 ng/mL (> or = 4.0); Vitamin B12 435 pg/mL (200-900)
== END 2025-05-03 13:18 | disposition home or self-care (01) ==
LOC: HO.HHCL 13:17
PROVIDERS: PCP Registered Nurse Community Health; Visit Provider Internal Medicine Geriatric Medicine
DX: R71.8 Other abnormality of red blood cells (principal)
CPT/HCPCS: 36415; 82607; 82746; 84443